=== PATIENT | female | born 1955 | race Caucasian/White ===

== ENCOUNTER 2018-11-22 15:17 | Observation (INO) | payer OTHER ==
[2018-11-22 16:04] LABS: ALT 15 U/L (9-52); AST 16 U/L (14-36); African American GFR (CKD) >90 (>60 ml/min/1.73 sqM); Alkaline Phosphatase 105 U/L (38-126); Anion Gap 11 mmol/L; Blood Urea Nitrogen 14 mg/dL (7-17); Calcium 9.3 mg/dL (8.4-10.2); Carbon Dioxide 19 mmol/L (22-30); Chloride 107 mmol/L (98-107); Glucose 218 mg/dL (74-99); INR 0.9 (<1.2); Potassium 3.8 mmol/L (3.5-5.1); Prothrombin Time 9.9 sec (9.0-12.0); Sodium 137 mmol/L (137-145); Total Bilirubin 0.3 mg/dL (0.2-1.3); Total Protein 7.3 g/dL (6.3-8.2)
--- NOTE | 2018-11-22 16:04 | ED ---
General Adult HPI - General Chief complaint: Recheck/Abnormal Lab/Rx Stated complaint: Sent for a blood transfusion Time Seen by Provider: 11/22/18 15:24 Source: patient, RN notes reviewed Mode of arrival: ambulatory Limitations: no limitations - History of Present Illness Initial comments: This a 63-year-old female presents emergency Department with chief complaint of abnormal labs. Patient states that she has not been feeling well for a while states that she recently moved back to [facility] and states that she reestablish with her PCP Dr. Chatman. Patient states that she received a phone call today and was found to have low hemoglobin. She does not know how low his hemoglobin was. She has no history of this. She does feel short of breath, intermittent abdominal discomfort and slightly dizzy at times. She does not take any blood thinners. She states that she is chronic taken metformin ibuprofen, Zoloft, Bactrim for UTI. Patient does admit that she's been having vaginal bleeding and which she states it was really severe and began year. She states that she did go for an ultrasound yesterday but does not all her results. Patient reports no fevers or chills denies any current headache. Patient denies any melena or hematochezia - Related Data Home Medications Medication Instructions Recorded Confirmed Ibuprofen [Motrin] 800 mg PO BID 11/22/18 11/22/18 Sertraline [Zoloft] 50 mg PO DAILY 11/22/18 11/22/18 Sulfamethox-Tmp 800-160Mg [Bactrim 1 tab PO BID 11/22/18 11/22/18 DS 800-160 mg] Vitamin E (Dl,Tocopheryl Acet) 400 unit PO DAILY 11/22/18 11/22/18 [Vitamin E] metFORMIN HCL [Glucophage] 500 mg PO TID 11/22/18 11/22/18 Allergies Allergy/AdvReac Type Severity Reaction Status Date / Time fluoxetine [From Prozac] Allergy Swelling Verified 11/22/18 15:45 Review of Systems ROS Statement: Those systems with pertinent positive or pertinent negative responses have been documented in the HPI. ROS Other: All systems not noted in ROS Statement are negative. Past Medical History Past Medical History: Diabetes Mellitus History of Any Multi-Drug Resistant Organisms: None Reported Additional Past Surgical History / Comment(s): skin graft Past Psychological History: Anxiety, Depression, Panic Disorder Smoking Status: Current every day smoker Past Alcohol Use History: None Reported Past Drug Use History: Marijuana General Exam Limitations: no limitations General appearance: alert, in no apparent distress Head exam: Present: atraumatic, normocephalic, normal inspection Eye exam: Present: normal appearance, PERRL, EOMI. Absent: scleral icterus, conjunctival injection, periorbital swelling ENT exam: Present: normal exam, normal oropharynx, mucous membranes moist Neck exam: Present: normal inspection, full ROM. Absent: tenderness, meningismus, lymphadenopathy Respiratory exam: Present: normal lung sounds bilaterally. Absent: respiratory distress, wheezes, rales, rhonchi, stridor Cardiovascular Exam: Present: normal rhythm, tachycardia, normal heart sounds. Absent: systolic murmur, diastolic murmur, rubs, gallop, clicks GI/Abdominal exam: Present: soft, normal bowel sounds. Absent: distended, tenderness, guarding, rebound, rigid Neurological exam: Present: alert Skin exam: Present: warm, dry, intact, normal color. Absent: rash Course Vital Signs 11/22/18 11/22/18 15:19 15:58 Temperature 99.0 F Pulse Rate 105 H Respiratory 22 16 Rate Blood Pressure 165/90 O2 Sat by Pulse 99 Oximetry EKG Findings - EKG Comments: EKG Findings:: EKG performed at 15:40 junctional Rhythm with PVC Rate of 107 NJ 122 QRS 66 QT/QTC 366/488 Medical Decision Making - Medical Decision Making 63-year-old female presented from for abnormal labs. Patient found to have anemia hemoglobin 7.1. Patient has had some intermittent vaginal bleeding and she did have an ultrasound yesterday which showed endometrial thickening concerning for carcinoma. Dr. Vegas discussed the case with Dr. trung ashraf who recommends patient be admitted will be transfused for symptomatic anemia with consult the [facility]. - Lab Data Result diagrams: 11/22/18 15:46 11/22/18 15:50 Lab Results 11/22/18 11/22/18 11/22/18 Range/Units 15:46 15:50 15:50 WBC 10.9 H (3.8-10.6) k/uL RBC 4.41 (3.80-5.40) m/uL Hgb 7.1 L (11.4-16.0) gm/dL Hct 27.2 L (34.0-46.0) % MCV 61.7 L (80.0-100.0) fL MCH 16.1 L (25.0-35.0) pg MCHC 26.0 L (31.0-37.0) g/dL RDW 19.7 H (11.5-15.5) % Hypochromasia Marked Poikilocytosis Slight Anisocytosis Slight Microcytosis Marked PT (9.0-12.0) sec INR (<1.2) APTT (22.0-30.0) sec Sodium 137 (137-145) mmol/L Potassium 3.8 (3.5-5.1) mmol/L Chloride 107 (98-107) mmol/L Carbon Dioxide 19 L (22-30) mmol/L Anion Gap 11 mmol/L BUN 14 (7-17) mg/dL Creatinine 0.66 (0.52-1.04) mg/dL Est GFR (CKD-EPI)AfAm >90 (>60 ml/min/1.73 sqM) Est GFR (CKD-EPI)NonAf >90 (>60 ml/min/1.73 sqM) Glucose 218 H (74-99) mg/dL Calcium 9.3 (8.4-10.2) mg/dL Total Bilirubin 0.3 (0.2-1.3) mg/dL AST 16 (14-36) U/L ALT 15 (9-52) U/L Alkaline Phosphatase 105 (38-126) U/L Troponin I (0.000-0.034) ng/mL Total Protein 7.3 (6.3-8.2) g/dL Albumin 4.0 (3.5-5.0) g/dL Blood Type A Negative Blood Type Recheck No Previous Record Bld Type Recheck Status CABO Indicated Antibody Screen NEGATIVE Spec Expiration Date 11/25/2018 - 234911/22/18 11/22/18 Range/Units 15:50 15:50 WBC (3.8-10.6) k/uL RBC (3.80-5.40) m/uL Hgb (11.4-16.0) gm/dL Hct (34.0-46.0) % MCV (80.0-100.0) fL MCH (25.0-35.0) pg MCHC (31.0-37.0) g/dL RDW (11.5-15.5) % Hypochromasia Poikilocytosis Anisocytosis Microcytosis PT 9.9 (9.0-12.0) sec INR 0.9 (<1.2) APTT 23.0 (22.0-30.0) sec Sodium (137-145) mmol/L Potassium (3.5-5.1) mmol/L Chloride (98-107) mmol/L Carbon Dioxide (22-30) mmol/L Anion Gap mmol/L BUN (7-17) mg/dL Creatinine (0.52-1.04) mg/dL Est GFR (CKD-EPI)AfAm (>60 ml/min/1.73 sqM) Est GFR (CKD-EPI)NonAf (>60 ml/min/1.73 sqM) Glucose (74-99) mg/dL Calcium (8.4-10.2) mg/dL Total Bilirubin (0.2-1.3) mg/dL AST (14-36) U/L ALT (9-52) U/L Alkaline Phosphatase (38-126) U/L Troponin I <0.012 (0.000-0.034) ng/mL Total Protein (6.3-8.2) g/dL Albumin (3.5-5.0) g/dL Blood Type Blood Type Recheck Bld Type Recheck Status Antibody Screen Spec Expiration Date Disposition Clinical Impression: Anemia, Endometrial thickening on ultrasound Disposition: ADMITTED IP TO THIS [facility] Condition: Fair Referrals: Selena Escobedo MD [Primary Care Provider] - 1-2 days
[2018-11-22 16:10] LABS: Anisocytosis Slight; HCT 27.2 % (34.0-46.0); HGB 7.1 gm/dL (11.4-16.0); Hypochromasia Marked; MCH 16.1 pg (25.0-35.0); MCV 61.7 fL (80.0-100.0); Mean Platelet Volume 6.6; Microcytosis Marked; Platelet Count 499 k/uL (150-450); Poikilocytosis Slight; RBC 4.41 m/uL (3.80-5.40); RDW 19.7 % (11.5-15.5); WBC 10.9 k/uL (3.8-10.6)
--- NOTE | 2018-11-22 16:21 | XR ---
EXAMINATION TYPE: XR chest 2V DATE OF EXAM: 11/22/2018 COMPARISON: NONE HISTORY: Shortness of breath and weakness. TECHNIQUE: Frontal and lateral views of the chest are obtained. FINDINGS: Somewhat low lung volumes. Overlying EKG leads. There is no focal air space opacity, pleura l effusion, or pneumothorax seen. The cardiac silhouette size is enlarged with slightly ectatic thor acic aorta. The osseous structures are intact. IMPRESSION: Cardiomegaly without acute pulmonary process.
[2018-11-22] MEDS ORDERED: NALOXONE 0.4 MG/ML 1 ML VIAL IV PRN (16:46)
[2018-11-22] MEDS ORDERED: ACETAMINOPHEN TAB 325 MG TAB PO PRN (16:46)
[2018-11-22] MEDS ORDERED: ONDANSETRON 4 MG/2 ML VIAL IVP PRN (16:46)
[2018-11-22] MEDS ORDERED: HYDROcodone/APAP 5-325MG 1 EACH TAB PO PRN (16:46)
[2018-11-22] MEDS ORDERED: FERROUS SULFATE 325 MG TAB PO STA (16:48)
[2018-11-22 16:53] LABS: Anisocytosis (M) Present; Basophils # (M) 0.11 k/uL (0-0.2); Eosinophils # (M) 0.22 k/uL (0-0.7); Hypochromasia (M) Present; Lymphocytes # (M) 2.51 k/uL (1.0-4.8); Monocytes # (M) 0.33 k/uL (0-1.0); Neutrophils % (M) 71 %; Nucleated Red Blood Cells 0 /100 WBC (0-0); Polychromasia Present; Total Cells Counted 100
[2018-11-22 17:33] LABS: Appearance,Urine Clear (Clear); Bilirubin,Urine Negative (Negative); Blood,Urine Small (Negative); Color,Urine Yellow; Glucose,Urine (UA) 1+ (Negative); Ketones,Urine Negative (Negative); Leukocyte Esterase,Urine Moderate (Negative); Mucus,Urine Few /hpf; Nitrite,Urine Negative (Negative); Protein,Urine 1+ (Negative); RBC,Urine 2 /hpf (0-5); Specific Gravity,Urine 1.026 (1.001-1.035); Squamous Epithelial Cell,Urine 4 /hpf (0-4); WBC,Urine 4 /hpf (0-5)
[2018-11-22 17:53] LABS: Glucose,Whole Blood 228 mg/dL (75-99)
[2018-11-22 20:57] LABS: Glucose,Whole Blood 223 mg/dL (75-99)
[2018-11-22 21:22] VITALS: RESP 16
[2018-11-22] MEDS: metFORMIN 500 MG TAB PO SCH (21:54)
[2018-11-22] MEDS: NICOTINE 21MG/24HR PATCH TRANSDERM SCH (21:54)
[2018-11-23 05:55] VITALS: BP 134/68; PULSE 86; TEMP 98.3
[2018-11-23 07:31] LABS: Glucose,Whole Blood 168 mg/dL (75-99)
[2018-11-23 08:03] LABS: Anisocytosis Moderate; HGB 7.6 gm/dL (11.4-16.0); Hypochromasia Marked; MCH 17.7 pg (25.0-35.0); MCHC 28.3 g/dL (31.0-37.0); MCV 62.4 fL (80.0-100.0); Mean Platelet Volume 7.1; Microcytosis Marked; Platelet Count 485 k/uL (150-450); Poikilocytosis Moderate; RBC 4.32 m/uL (3.80-5.40); RDW 21.5 % (11.5-15.5); WBC 11.4 k/uL (3.8-10.6)
[2018-11-23] MEDS: metFORMIN 500 MG TAB PO SCH ×2 (08:13→12:37)
[2018-11-23] MEDS: INSULIN ASPART (NovoLOG) 100 UNIT/ML VIAL SQ SCH ×2 (08:13→12:31)
[2018-11-23] MEDS: NICOTINE 21MG/24HR PATCH TRANSDERM SCH (08:13)
[2018-11-23] MEDS ORDERED: SERTRALINE 50 MG TAB PO SCH (09:00)
[2018-11-23 10:40] VITALS: BMI 36.6
[2018-11-23] MEDS ORDERED: SODIUM FERRIC GLUCONAT-SUCROSE 125 MG in SODIUM CHLORIDE 0.9% 100 ML IVPB ONE (12:00)
[2018-11-23 12:10] LABS: Glucose,Whole Blood 242 mg/dL (75-99)
[2018-11-23 12:21] LABS: Anisocytosis Moderate; HCT 28.8 % (34.0-46.0); HGB 7.9 gm/dL (11.4-16.0); Hypochromasia Marked; MCH 17.9 pg (25.0-35.0); MCHC 27.5 g/dL (31.0-37.0); MCV 65.1 fL (80.0-100.0); Microcytosis Marked; Platelet Count 525 k/uL (150-450); Poikilocytosis Marked; RBC 4.43 m/uL (3.80-5.40)
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
--- NOTE | 2018-11-23 12:25 | P.DS ---
Providers Date of admission: 11/22/18 17:03 Attending physician: Barbra Castillo Consults: 11/22/18 16:47 Consult Physician Routine Consulting Provider: Jairo Arias Consult Reason/Comments: Abnormal vaginal bleeding, thickened endometrial lining, anemia Do you want consulting provider notified?: Yes Primary care physician: Fanny Walters [facility] Course: Please refer to my HPI Patient Condition at Discharge: Fair Plan - Discharge Summary Discharge Rx Participant: Yes New Discharge Prescriptions: New Ferrous Sulfate [Iron (65 MG Elemental)] 325 mg PO BID #60 tab Polyethylene Glycol 3350 [Miralax] 17 gm PO DAILY PRN #15 packet PRN Reason: Constipation metFORMIN HCL [Glucophage] 1,000 mg PO BID #60 tab Discontinued metFORMIN HCL [Glucophage] 500 mg PO TID Sulfamethox-Tmp 800-160Mg [Bactrim DS 800-160 mg] 1 tab PO BID Ibuprofen [Motrin] 800 mg PO BID No Action Vitamin E (Dl,Tocopheryl Acet) [Vitamin E] 400 unit PO DAILY Sertraline [Zoloft] 50 mg PO DAILY Discharge Medication List Sertraline [Zoloft] 50 mg PO DAILY 11/22/18 [History] Vitamin E (Dl,Tocopheryl Acet) [Vitamin E] 400 unit PO DAILY 11/22/18 [History] Ferrous Sulfate [Iron (65 MG Elemental)] 325 mg PO BID #60 tab 11/23/18 [Rx] Polyethylene Glycol 3350 [Miralax] 17 gm PO DAILY PRN #15 packet 11/23/18 [Rx] metFORMIN HCL [Glucophage] 1,000 mg PO BID #60 tab 11/23/18 [Rx] Follow up Appointment(s)/Referral(s): Mayco Miller MD [STAFF PHYSICIAN] - 1 Week Selena Escobedo MD [Primary Care Provider] - 3 Days
== END 2018-11-23 15:41 | disposition home or self-care (01) ==
LOC: EC 15:17 → 4MS4W 17:03
PROVIDERS: ADMIT Internal Medicine; ATTEND Internal Medicine
DX: D50.0 Iron deficiency anemia secondary to blood loss (chronic) (principal); R93.89 Abnormal findings on diagnostic imaging of other specified body structures; N95.0 Postmenopausal bleeding; N93.9 Abnormal uterine and vaginal bleeding, unspecified; R10.9 Unspecified abdominal pain; E11.9 Type 2 diabetes mellitus without complications; F41.0 Panic disorder [episodic paroxysmal anxiety]; F32.9 Major depressive disorder, single episode, unspecified; F17.200 Nicotine dependence, unspecified, uncomplicated; K92.2 Gastrointestinal hemorrhage, unspecified; D47.3 Essential (hemorrhagic) thrombocythemia; E66.9 Obesity, unspecified; Z68.36 Body mass index [BMI] 36.0-36.9, adult; Z79.84 Long term (current) use of oral hypoglycemic drugs; Z79.1 Long term (current) use of non-steroidal anti-inflammatories (NSAID); Z79.899 Other long term (current) drug therapy; Z88.8 Allergy status to other drugs, medicaments and biological substances; Z87.01 Personal history of pneumonia (recurrent); Z83.3 Family history of diabetes mellitus; Z82.49 Family history of ischemic heart disease and other diseases of the circulatory system; Z83.6 Family history of other diseases of the respiratory system; Z83.2 Family history of diseases of the blood and blood-forming organs and certain disorders involving the immune mechanism; Z80.3 Family history of malignant neoplasm of breast; Z80.0 Family history of malignant neoplasm of digestive organs
CPT/HCPCS: 36430; 96365; 99284; 36415; 93005; 86900; 86901; 80053; 82728; 84484; 85025; 85027; 85610; 85730; 86850; 86920; 81001; 71046; G0378 ×2; P9016; S4990 ×2; J2916

== ENCOUNTER → 2018-11-22 | Outpatient (CLI) | payer OTHER ==
--- NOTE | 2018-11-22 08:48 | US ---
"EXAMINATION TYPE: US pelvis complete transvag DATE OF EXAM: 11/22/2018 COMPARISON: NONE CLINICAL HISTORY: N95.0 post-menopausal bleeding, R10.2 pelvic pain. spotting started June 2017, and has increased to clots currently TECHNIQUE: TA/TV. Transabdominal sonographic images of the pelvis were acquired. Transvaginal sono graphic images were medically necessary to better assess the following anatomy: endometrium Date of LMP: 10years EXAM MEASUREMENTS: Uterus: 8.6 x 6.5 x 5.2cm Endometrial Stripe: 4.1 cm Right Ovary: N/A Left Ovary: N/A 1. Uterus: Anteverted heterogeneous 2. Endometrium: grossly thickened with vascularity 3. Right Ovary: not seen due to atrophy and bowel gas 4. Left Ovary: not seen due to atrophy and bowel gas 5. Bilateral Adnexa: wnl 6. Posterior cul-de-sac: wnl IMPRESSION: Grossly thickened endometrium measuring 4.1 cm with internal vascularity either represent ing endometrial carcinoma, a large endometrial polyp, or less likely endometrial hyperplasia or leiom yoma. Direct visualization and sampling are recommended. Ovaries are not seen due to overlying bowel gas and presumed atrophy. A Yellow level critical message alert has been initiated for Selena Escobedo MD via the [employer] | Critical Results System on 11/22/2018 8:45 AM. This message alert has been sent to Selena greco MD via the preferences provided by the clinician for the receipt of Radiology Critical Findings. Fidel essage ID [id number]."
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
== END | disposition home or self-care (01) ==
LOC: RADUSWWP 06:46
PROVIDERS: ATTEND Internal Medicine
DX: R93.89 Abnormal findings on diagnostic imaging of other specified body structures (principal); N95.0 Postmenopausal bleeding; R10.2 Pelvic and perineal pain; Z88.8 Allergy status to other drugs, medicaments and biological substances
CPT/HCPCS: 76830; 76856

== ENCOUNTER → 2019-03-29 | Outpatient (CLI) | payer OTHER ==
[2019-03-29 09:51] LABS: ALT 12 U/L (4-34); AST 18 U/L (14-36); African American GFR (CKD) >90 (>60 ml/min/1.73 sqM); Albumin 4.3 g/dL (3.5-5.0); Alkaline Phosphatase 83 U/L (38-126); Anion Gap 10 mmol/L; Blood Urea Nitrogen 13 mg/dL (7-17); Calcium 9.8 mg/dL (8.4-10.2); Carbon Dioxide 21 mmol/L (22-30); Chloride 109 mmol/L (98-107); Glucose 168 mg/dL (74-99); Non-African American GFR(CKD) >90 (>60 ml/min/1.73 sqM); Sodium 140 mmol/L (137-145); Total Bilirubin 0.7 mg/dL (0.2-1.3); Total Protein 7.7 g/dL (6.3-8.2)
[2019-03-29 10:06] LABS: Potassium 4.3 mmol/L (3.5-5.1)
--- NOTE | 2019-03-29 11:29 | CT ---
EXAMINATION TYPE: CT abdomen pelvis wo/w con DATE OF EXAM: 03/29/2019 HISTORY: Malignant neoplasm of Endometrium CT DLP: 2358.1mGycm Automated Exposure Control for Dose Reduction was Utilized. CONTRAST: CT scan of the abdomen and pelvis is performed with oral and without and with IV Contrast, patient in jected with 100 mL of Isovue 300. COMPARISON: Pelvic ultrasound November 22, 2018. FINDINGS: LUNG BASES: No significant abnormality is appreciated. LIVER/GB: No significant abnormality is appreciated. PANCREAS: No significant abnormality is seen. SPLEEN: No significant abnormality is seen. ADRENALS: No significant abnormality is seen. KIDNEYS: No significant abnormality is seen. BOWEL: No oral contrast only reaches level of the terminal ileum making evaluation distal bowel subop timal. There is moderate wall thickening throughout majority of the the entire colon from cecum to pr oximal sigmoid colon level. [id number] wall thickening throughout the sigmoid colon is present. Rectum shows no suspicious wall thickening. There are diverticula throughout the sigmoid colon. Ther e is no significant surrounding fat stranding. Incidental normal-appearing appendix inferiorly from c ecum in the right upper pelvis. UTERUS/ADNEXA: Heterogeneous anteverted enlarged uterus is redemonstrated. There are some pelvic blee d was bilaterally greater on the right side. No suspicious adnexal masses are seen. LYMPH NODES: No greater than 1cm abdominal or pelvic lymph nodes are appreciated. OSSEOUS STRUCTURES: Slight grade 1 anterolisthesis L4 on L5 moderate to advanced disc space narrowing with vacuum disc phenomenon L4-L5 level mild to moderate disc space narrowing L3-L4 level. Mild to m oderate multilevel inferior and lateral spurring in the thoracic spine. Facet arthropathy lower lumba r levels. OTHER: Small fat-containing bilateral inguinal hernias. Mild calcified plaque distal abdominal aorta extending to iliac branch vessels. IMPRESSION: 1. No suspicious mass or adenopathy to suggest metastatic malignancy. 2. Probable long segment colitis, differential includes infectious and inflammatory etiologies. Sigmo id colonic diverticulosis without convincing CT evidence for acute diverticulitis.
--- NOTE | 2019-03-29 13:32 | XR ---
EXAMINATION TYPE: XR chest 2V DATE OF EXAM: 03/29/2019 COMPARISON: Prior chest 11/22/2018 HISTORY: Malignant neoplasm of endometrium, endometrial carcinoma TECHNIQUE: Frontal and lateral views of the chest are obtained. FINDINGS: There is no focal air space opacity, pleural effusion, or pneumothorax seen. The cardiac silhouette size is within normal limits. The osseous structures are intact. There is eventration of the right hemidiaphragm. IMPRESSION: No acute cardiopulmonary process.
== END | disposition home or self-care (01) ==
LOC: RADCTMAIN 08:52
PROVIDERS: ATTEND Obstetrics & Gynecology Gynecology
DX: K57.30 Diverticulosis of large intestine without perforation or abscess without bleeding (principal); C54.1 Malignant neoplasm of endometrium
CPT/HCPCS: 80053; 71046; 74178; 36415; Q9967 ×2

== ENCOUNTER → 2021-08-22 | Outpatient (CLI) | payer OTHER ==
[2021-08-22 18:43] LABS: ALT 15 U/L (8-44); AST 10 U/L (13-35); African American GFR (CKD) 107.3 (60.0-200.0); Albumin 4.5 g/dL (3.8-4.9); Albumin/Globulin Ratio 1.77 (1.60-3.17); Alkaline Phosphatase 100 U/L (41-126); BUN/Creat Ratio 19.79 Ratio (12.00-20.00); Blood Urea Nitrogen 13.4 mg/dL (9.0-27.0); Calcium 9.2 mg/dL (8.7-10.3); Carbon Dioxide 20.3 mmol/L (20.0-27.5); Chloride 109 mmol/L (96-109); Globulin 2.5 g/dL (1.6-3.3); Glucose 117 mg/dL (70-110); Iron 12 ug/dL (50-170); Non-African American GFR(CKD) 92.6 (60.0-200.0); Potassium 5.1 mmol/L (3.5-5.5); Sodium 141 mmol/L (135-145); Total Bilirubin <0.15 mg/dL (0.30-1.20)
[2021-08-22 18:51] LABS: HCT 24.6 % (37.2-46.3); HGB 6.2 g/dL (12.0-15.0); MCH 18.6 pg (27.0-32.0); MCHC 25.2 g/dL (32.0-37.0); MCV 73.9 fL (80.0-97.0); Mean Platelet Volume 10.1 fL (9.5-12.2); NRBC Per 100 WBC 0 /100 WBCS (0.0-0.0); Platelet Count 459 X 10*3/uL (140-440); RBC 3.33 X 10*6/uL (4.10-5.20); RDW 20.3 % (11.5-14.5); WBC 12.12 X 10*3/uL (4.50-10.00)
[2021-08-22 20:28] LABS: Appearance,Urine Cloudy (Clear); Bacteria,Urine 4+ /HPF (None Seen); Bilirubin,Urine Negative (Negative); Blood,Urine Negative (Negative); Color,Urine Yellow (Yellow); Ketones,Urine Trace mg/dL (Negative); Nitrite,Urine Negative (Negative); PH, Urine 5.5 (5.0-8.0); Specific Gravity,Urine >1.035 (1.001-1.030)
== END | disposition home or self-care (01) ==
LOC: LABWHC1 11:49
PROVIDERS: ATTEND Physician Assistant
DX: E11.9 Type 2 diabetes mellitus without complications (principal); D64.9 Anemia, unspecified
CPT/HCPCS: 36415; 80053; 81001; 83036; 83540; 85027

== ENCOUNTER → 2021-08-28 | Outpatient (CLI) | payer OTHER ==
--- NOTE | 2021-08-29 22:12 | CT ---
EXAMINATION TYPE: CT abdomen pelvis w con CT DLP: 1562.0 mGycm, Automated exposure control for dose reduction was used. DATE OF EXAM: 08/28/2021 8:18 PM COMPARISON: CT abdomen pelvis most recent from 03/29/2019. CLINICAL INDICATION:Female, 66 years old with history of C54.2 mal neoplasm endometrium, Z08 follow u p aftr; mal neoplasm endometrium TECHNIQUE: Standard CT of the abdomen and pelvis following the administration of 100 cc of Isovue 3 00 IV contrast material and oral contrast. Coronal and sagittal reformats were performed. FINDINGS: LOWER CHEST: Unremarkable ABDOMEN LIVER: Diffusely hypoattenuating parenchyma. GALLBLADDER AND BILE DUCTS: Unremarkable. PANCREAS: Unremarkable. SPLEEN: Unremarkable. ADRENAL GLANDS: Unremarkable. KIDNEYS AND URETERS: No evidence of hydronephrosis or renal calculus. The ureters are unremarkable. PELVIS BLADDER: There is circumferential thickening of the bladder reed measuring up to 10 mm. REPRODUCTIVE: The uterus is surgically absent. ABDOMEN & PELVIS STOMACH AND BOWEL: Scattered diverticula are noted throughout the colon. No evidence of bowel obstr uction. No change in appearance of the nondistention of the distal transverse colon extending into th e descending colon. PERITONEUM: No evidence of pneumoperitoneum or free fluid. VASCULATURE: No evidence of aortic aneurysm. MUSCULOSKELETAL: No acute osseous abnormalities. Grade 1 anterolisthesis of L4 and L5 without spondyl olysis. LYMPH NODES: No gross evidence for lymphadenopathy. Portacaval lymph node measuring 8 mm in short axi s, not significantly changed from 2020. SOFT TISSUE/ABDOMINAL WALL: Fat filled umbilical hernia measuring 0.6 cm at the neck. Small fat-conta ining bilateral inguinal hernias. IMPRESSION: 1. Surgically absent uterus without evidence for recurrent or metastatic disease. 2. Hepatic steatosis 3. Similar appearance of the nondistended distal transverse colon extending into the descending colon when comparing to 2019. 4. Colonic diverticulosis.
== END | disposition home or self-care (01) ==
LOC: RADCTMAIN 15:33
PROVIDERS: ATTEND Radiology Radiation Oncology
DX: Z08 Encounter for follow-up examination after completed treatment for malignant neoplasm (principal); C54.2 Malignant neoplasm of myometrium; F17.210 Nicotine dependence, cigarettes, uncomplicated; Z85.42 Personal history of malignant neoplasm of other parts of uterus; Z92.3 Personal history of irradiation
CPT/HCPCS: 74177; Q9967 ×2

== ENCOUNTER 2021-10-07 07:26 | Day surgery (SDC) | payer OTHER ==
[2021-10-06 08:17] VITALS: BMI 36.8
[~2021-10-07 07:26] MED LIST: LACTATED RINGERS 1,000 ML IV SCH; LIDOCAINE 1% (10MG/ML) FOR IV START INTRADERMA PRN; ONDANSETRON 4 MG/2 ML VIAL IVP PRN
[2021-10-07 07:54] VITALS: RESP 16; TEMP 97.1
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
[2021-10-07] MEDS ORDERED: LACTATED RINGERS 1,000 ML IV ONE (08:11)
[2021-10-07] MEDS ORDERED: LIDOCAINE 2% INJ 20 MG/ML (2 ML VIAL) ONE (08:12)
[2021-10-07] MEDS ORDERED: PROPOFOL 10 MG/ML 20 ML VIAL IV ONE (08:12)
[2021-10-07 08:13] LABS: Glucose,Whole Blood 202 mg/dL (70-110)
--- NOTE | 2021-10-07 08:52 | P.PCN ---
Date of Procedure: 10/07/21 Procedure(s) Performed: PREOPERATIVE DIAGNOSIS: Anemia, screening POSTOPERATIVE DIAGNOSIS: Gastritis, hiatal hernia, multiple colon polyps, diverticulosis PROCEDURE: 1. EGD with biopsy 2. Colonoscopy with snare polypectomy ANESTHESIA: MAC SURGEON: Nelson Rosales M.D. SPECIMENS: Antrum, polyps ENDOSCOPIC PROCEDURE: The patient was on the endoscopy table in the left decubitus position. The Olympus gastroscope was inserted into the oropharynx and passed under direct visualization to the region of the third portion of the duodenum. From that point the scope was slowly withdrawn inspecting all surfaces carefully. There were no neoplastic inflammatory or polypoid lesions throughout the duodenum. The pylorus was widely patent. The stomach was carefully inspected. There was gastritis present without ulcerations. A biopsy of the antrum took place to rule out H. pylori. Retroflexion revealed a small sliding hiatal hernia. GE junction was present 2 cm above the diaphragmatic hiatus. The esophagus was then carefully examined. There were no neoplastic inflammatory or polypoid lesions throughout the visualized esophagus. The patient was kept on the endoscopy table in the left decubitus position. The Olympus colonoscope was inserted into the anus and passed under direct visualization to the base of the cecum. The appendiceal orifice was visualized. From that point the scope was slowly withdrawn inspecting all surfaces carefully. There were no neoplastic inflammatory or polypoid lesions throughout the cecum. In the ascending colon 2 polyps were seen and removed using the snare with cautery technique. At the hepatic flexure an additional polyp seen and removed in a similar fashion. The remainder of the transverse colon was normal. In the descending colon there were 2 polyps removed using the snare with cautery technique. The sigmoid and rectum appeared normal. There was mild left-sided diverticulosis. Digital rectal examination was normal. The patient was taken to the recovery room in stable condition per anesthesia guidelines. RECOMMENDATIONS: Await biopsy results. No findings to explain the patient's anemia.
[2021-10-07 09:28] VITALS: BP 165/86; PULSE 82
== END 2021-10-07 10:01 | disposition home or self-care (01) ==
LOC: ORWHC2ENDO 07:26
PROVIDERS: ATTEND Surgery
DX: Z12.11 Encounter for screening for malignant neoplasm of colon (principal); D12.2 Benign neoplasm of ascending colon; D12.4 Benign neoplasm of descending colon; D12.3 Benign neoplasm of transverse colon; K29.50 Unspecified chronic gastritis without bleeding; K44.9 Diaphragmatic hernia without obstruction or gangrene; K57.30 Diverticulosis of large intestine without perforation or abscess without bleeding; D50.9 Iron deficiency anemia, unspecified; E11.9 Type 2 diabetes mellitus without complications; I10 Essential (primary) hypertension; Z85.42 Personal history of malignant neoplasm of other parts of uterus; Z90.710 Acquired absence of both cervix and uterus; F17.200 Nicotine dependence, unspecified, uncomplicated; Z79.84 Long term (current) use of oral hypoglycemic drugs; Z79.899 Other long term (current) drug therapy; Z88.8 Allergy status to other drugs, medicaments and biological substances; J44.9 Chronic obstructive pulmonary disease, unspecified; Z80.9 Family history of malignant neoplasm, unspecified; Z82.49 Family history of ischemic heart disease and other diseases of the circulatory system; Z83.3 Family history of diabetes mellitus; Z83.6 Family history of other diseases of the respiratory system
CPT/HCPCS: 88305; 45385; 43239; J2704; J2001

== ENCOUNTER → 2022-08-13 | Outpatient (CLI) | payer MEDICARE, OTHER ==
--- NOTE | 2022-08-14 08:39 | MM ---
Reason for Exam: Screening (asymptomatic). Last mammogram was performed 11 year(s) and 10 month(s) ago. Patient History: Menarche at age 14. Patient has no children. Hysterectomy at age 64. Postmenopausal. 1991, Cyst Aspiration on the Left side. Risk Values: 5 year model risk: 1.8%. NCI Lifetime model risk: 6.9%. Prior Study Comparison: 08/29/2008 Bilateral Screening Mammogram, [facility]. 09/02/2009 Bilateral Screening Mammogram, [facility]. 10/30/2010 Bilateral Screening Mammogram, [facility]. Tissue Density: There are scattered fibroglandular densities. Findings: Analyzed By CAD. There is no suspicious group of microcalcifications or new suspicious mass in either breast. Overall Assessment: Negative, BI-RAD 1 Management: Screening Mammogram of both breasts in 1 year. . Patient should continue monthly self-breast exams. A clinical breast exam by your physician is recommended on an annual basis. This exam should not preclude additional follow-up of suspicious palpable abnormalities. Note on scores and lifetime risk: 1. A score greater than 3% is considered moderate risk. If this is the case, consider specialist referral to assess eligibility for a risk reducing agent. 2. If overall lifetime risk for the development of breast cancer is 20% or higher, the patient may qualify for future screening with alternating mammogram and breast MRI. Electronically signed and approved by: Grady Linares M.D. Radiologis
== END | disposition home or self-care (01) ==
LOC: RADMAMWWP 14:10
PROVIDERS: ATTEND Internal Medicine Hematology & Oncology
DX: Z12.31 Encounter for screening mammogram for malignant neoplasm of breast (principal); Z78.0 Asymptomatic menopausal state
CPT/HCPCS: 77063; 77067

== ENCOUNTER → 2022-08-18 | Outpatient (CLI) | payer MEDICARE ==
--- NOTE | 2022-08-19 21:07 | CTL ---
EXAMINATION TYPE: CT Low Dose Lung DATE OF EXAM ORDERED: 08/18/2022 HISTORY: 67-year-old female Z87.891, 53 pack-year history. Lung cancer screening CT DLP: 88.[address] CTDI: 2.6 mGy Automated exposure control for dose reduction was used. SCREENING VISIT: Baseline COMPARISON: Radiograph 03/29/2019 TECHNIQUE: Low dose computed tomography scan was performed through the chest with coronal and sagitta l reconstructions. CT DIAGNOSTIC QUALITY: Satisfactory FINDINGS: Heart upper limits of normal in size without pericardial effusion. Scattered three-vessel coronary ar dheeraj calcifications are present. Mild aortic valvular calcifications. Mild aneurysm ascending aorta 4.1 cm. Ectasia upper descending thoracic aorta at 3.4 cm. Ectasia lowe r descending thoracic aorta at 2.8 cm. Enlarged caliber to the main right and left pulmonary arteries measuring up to 3.0 cm suggesting unde rlying pulmonary arterial hypertension. No thoracic lymphadenopathy by CT size criteria. Mild diffuse bronchial wall thickening. Minimal emphysematous change. Some strandy lingular atelectas is. No consolidation or pleural effusion. There is an irregular opacity at the anterior right midlung, axial image 98 measuring 1.5 cm. Possibl e prominent vascular confluence versus underlying suspicious pulmonary nodule. Otherwise, no suspicio us pulmonary nodule is seen. Visualized upper abdomen is limited due to low-dose, noncontrast technique. Bones: Accentuated midthoracic kyphosis with moderate degenerative disc disease. IMPRESSION: 1. LungRADS Category 4B (very suspicious, >15% chance of malignancy). Possible underlying 1.5 cm righ t hilar, midlung nodule versus prominent vascular confluence. Recommend initial further assessment wi th contrast-enhanced CT of the chest. Subsequent pulmonary medicine referral may be indicated to atte mpt endobronchial sampling if a true lesion is confirmed. 2. COPD with minimal emphysema. Recommend smoking cessation. CT LUNG RAD AND CT CHEST RECOMMENDATION: Lung-Rad 4B or 4X Very Suspicious: Follow-up Chest CT with o r without contrast or PET/CT and/or tissue sampling. PET/CT may be used when there is a > 8 mm solid component. S Modifier (other clinically significant findings): None
== END | disposition home or self-care (01) ==
LOC: RADCTMAIN 15:43
PROVIDERS: ATTEND Internal Medicine Hematology & Oncology
DX: Z12.2 Encounter for screening for malignant neoplasm of respiratory organs (principal); J43.9 Emphysema, unspecified; C54.9 Malignant neoplasm of corpus uteri, unspecified; D50.9 Iron deficiency anemia, unspecified; D72.829 Elevated white blood cell count, unspecified; Z71.3 Dietary counseling and surveillance; F17.200 Nicotine dependence, unspecified, uncomplicated
CPT/HCPCS: 71271

== ENCOUNTER → 2022-08-31 | Outpatient (CLI) | payer MEDICARE ==
[2022-08-31 16:42] LABS: African American GFR (CKD) >90 (>60 ml/min/1.73 sqM); Blood Urea Nitrogen 20 mg/dL (7-17); Non-African American GFR(CKD) 81 (>60 ml/min/1.73 sqM)
--- NOTE | 2022-09-01 08:21 | CT ---
EXAMINATION TYPE: CT chest w con DATE OF EXAM: 08/31/2022 COMPARISON: 08/18/2022 HISTORY: lung nodule, hx of ovarian ca CT DLP: 554.90 mGycm Automated exposure control for dose reduction was used. CONTRAST: CT scan of the chest is performed with IV Contrast, patient injected with 100 mL of Isovue 300. FINDINGS: LUNGS: 1.9 x 1.3 cm right perihilar nodule right upper lobe is demonstrated. PET/CT is recommended fu rther evaluation. Groundglass density left upper lobe near the fissure does not have masslike charact eristics and may be postinflammatory in nature. No additional nodules seen. No evidence for infiltrat e or pleural effusion. No volume loss. MEDIASTINUM: There are no greater than 1 cm hilar or mediastinal lymph nodes. No pericardial effusi on is seen. Thoracic aorta is of normal caliber. The heart is not enlarged. 1 cm lymph node right hi lum. UPPER ABDOMEN: No significant abnormality appreciated. OTHER: No additional significant abnormality is seen. IMPRESSION: 1. Right perihilar right upper lobe nodule is demonstrated and PET/CT is recommended for further eval uation. 2. 1 cm right hilar lymph node.
== END | disposition home or self-care (01) ==
LOC: RADCTMAIN 15:52
PROVIDERS: ATTEND Internal Medicine Hematology & Oncology
DX: C54.9 Malignant neoplasm of corpus uteri, unspecified (principal); R91.1 Solitary pulmonary nodule; Z85.43 Personal history of malignant neoplasm of ovary
CPT/HCPCS: 82565; 84520; 71260; 36415; Q9967

== ENCOUNTER → 2023-01-26 | Outpatient (CLI) | payer MEDICARE, OTHER ==
--- NOTE | 2023-01-26 14:04 | US ---
EXAMINATION TYPE: US thyroid st tissue head/neck DATE OF EXAM: 01/26/2023 COMPARISON: CT chest 12/09/2022 CLINICAL INDICATION: Female, 67 years old with history of R22.0 RIGHT THYROID MASS; rt nodule seen on PET CT GLAND SIZE: Right Lobe: 5.7 x 1.8 x 1.9 cm Overall Parenchyma: homogeneous Left Lobe: 3.9 x 1.5 x 1.7 cm Overall Parenchyma: homogeneous Isthmus Thickness: 0.4 cm NODULES RIGHT: # of nodules measured on right: 1 1. 1.6 X 1.1 x 1.3 cm, lower solid or almost completely solid, hyperechoic nodule, which is taller than wide, with smooth margins, without echogenic foci. TR 4 Prior size: 1.2cm LEFT: # of nodules measured on left: 0 ISTHMUS: # of nodules measured in the isthmus: 0 Bilateral neck scanned, no evidence of lymphadenopathy. IMPRESSION: Right thyroid lobe TR 4 nodule measuring 1.6 cm. ACR TI-RADS LEVEL: TR-RADS 4 - Moderately Suspicious: Follow if > 1 cm, FNA if > 1.5 cm *Highest TI-RADS level nodule reported
== END | disposition home or self-care (01) ==
LOC: RADUSWWP 13:19
PROVIDERS: ATTEND Internal Medicine Hematology & Oncology
DX: Z03.89 Encounter for observation for other suspected diseases and conditions ruled out (principal); E04.1 Nontoxic single thyroid nodule; R22.0 Localized swelling, mass and lump, head
CPT/HCPCS: 76536

== ENCOUNTER 2023-02-25 12:54 | Day surgery (SDC) | payer MEDICARE, OTHER ==
[2023-02-25] MEDS ORDERED: ALPRAZolam 0.5 MG TAB PO STA (13:20)
[2023-02-25 13:27] VITALS: RESP 18; TEMP 98.4
--- NOTE | 2023-02-25 14:44 | US ---
EXAMINATION TYPE: US FNA thyroid first lesion DATE OF EXAM: 02/25/2023 2:37 PM CLINICAL INDICATION:Female, 67 years old with history of E04.1 NONTOXIC SINGLE THYROID NODULE; , thyr oid nodule. COMPARISON: 01/26/2023 ATTENDING: Dr. Sushant Shepherd PROCEDURE: Informed consent was obtained. The risks and benefits of the procedure were discussed with the patien t. The site was marked. Timeout procedure was performed Ultrasound imaging of the thyroid demonstrates right thyroid nodule. The patient was prepped, draped in the usual sterile fashion, and locally anesthetized with 1% lidoca ine. Five fine needle aspiration were then performed with a 25 gauge needle. Samples were sent to [facility] pathology department for further analysis. Patient tolerated the procedure without incident and wa s sent home in stable condition. IMPRESSION: Successful ultrasound guided fine needle aspiration.
[2023-02-25 15:11] VITALS: BP 130/71; PULSE 103
== END 2023-02-25 14:45 | disposition home or self-care (01) ==
LOC: RADPROMAIN 12:54
PROVIDERS: ATTEND Internal Medicine Hematology & Oncology
DX: E04.1 Nontoxic single thyroid nodule (principal)
CPT/HCPCS: 10005; 88173; 88305

== ENCOUNTER 2023-04-15 10:57 | Day surgery (SDC) | payer MEDICARE ==
[2023-04-14 08:33] VITALS: BMI 39.4
[~2023-04-15 10:57] MED LIST changes: -ONDANSETRON 4 MG/2 ML VIAL IVP PRN
[2023-04-15 12:08] LABS: Glucose,Whole Blood 246 mg/dL (70-110)
[2023-04-15] MEDS ORDERED: INSULIN ASPART (NovoLOG) 100 UNIT/ML VIAL SQ ONE (12:26)
[2023-04-15] MEDS ORDERED: fentaNYL (PF) 50 MCG/ML 2 ML AMP ONE (12:30)
[2023-04-15] MEDS ORDERED: PHENYLEPHRINE 10 MG/ML VIAL ONE (12:30)
[2023-04-15] MEDS ORDERED: LIDOCAINE 1% INJ 10MG/ML (20 ML MDV) ONE (12:30)
[2023-04-15] MEDS ORDERED: PROPOFOL 10 MG/ML 20 ML VIAL IV ONE (12:30)
[2023-04-15] MEDS ORDERED: SUCCINYLCHOLINE CHLORIDE 200 MG/10 ML VIAL IV ONE (12:30)
[2023-04-15] MEDS ORDERED: ePHEDrine 50 MG/ML 1 ML VIAL ONE (12:30)
[2023-04-15] MEDS ORDERED: NEOSTIGMINE 1 MG/ML 10 ML VIAL ONE (12:30)
[2023-04-15] MEDS ORDERED: ROCURONIUM 10 MG/ML (5 ML VIAL) IV ONE (12:30)
[2023-04-15] MEDS ORDERED: GLYCOPYRROLATE 0.2 MG/ML 2 ML VIAL ONE (12:30)
[2023-04-15] MEDS ORDERED: MIDAZOLAM 2 MG/2 ML VIAL ONE (12:30)
--- NOTE | 2023-04-15 12:34 | CT ---
EXAMINATION TYPE: CT chest wo con DATE OF EXAM: 04/15/2023 COMPARISON: 12/09/2022 HISTORY: ION bronchoscopy CT DLP: 740.30 mGycm, Automated exposure control for dose reduction was used. CONTRAST: Performed injected with 0 mL of Isovue 300. TECHNIQUE: Axial images were obtained at 1 mm thick sections. Reconstructed images are reviewed on wavecatch computer in the coronal plane. FINDINGS: Portion of the thyroid visualized is normal. There is a area of increased density within the right hilar region. This appears to be a change from comparison. On mediastinal windows this measures approximately 1.1 cm, series 3 image 96. No enlarged mediastinal or hilar adenopathy is evident. The ascending aorta diameter at the level o f the main pulmonary artery is 4.2 cm. The main pulmonary artery diameter at the bifurcation is 3.0 cm. Coronary artery calcification is noted. Limited CT sections are obtained through the upper abdomen. Abdomen is essentially unremarkable. IMPRESSION: 1. CT for bronchoscopy guidance. 2. 1.1 cm area of increased density within the right hilar region
--- NOTE | 2023-04-15 13:55 | P.PCN ---
Date of Procedure: 04/15/23 Operative Findings: Preoperative Diagnosis: Right upper lobe nodule, 1.9 cm Postoperative Diagnosis: Right upper lobe nodule, 1.9 cm Procedure(s) Performed: Flexible bronchoscopy Robotic-assisted bronchoscopy and addition to radial ultrasound evaluation of the right upper lobe pulmonary nodule Robotic-assisted test monitor needle aspirate, transbronchial biopsies, transbronchial brushing of the Right upper lobe pulmonary nodule in addition to a bronchioloalveolar lavage Endobronchial ultrasound Anesthesia: CATHYA Surgeon: Delta Prajapati Estimated Blood Loss (ml): 0 Pathology: other Condition: stable Disposition: same day Operative Findings: A physical exam was performed. Informed consent was obtained from the patient after explaining all the risks (pneumothorax, life threatening bleeding, infection and adverse effects due to medications), benefits and alternatives to the procedure which the patient appeared to understand and so stated. The patient was connected to the monitoring devices. General anesthesia was induced and the patient was intubated by anesthesia. A final timeout was performed and the procedure confirmed by the attending staff bronchoscopist. The bronchoscope was inserted and the airway examined. The airway examination was within normal limits. There was some limited secretions that were suctioned out without any major difficulties. The flexible bronchoscope was removed and the robotic bronchoscope was inserted. Registration was completed. I next guided the robotic bronchoscope using the navigation system into the Right upper lobe anterior segment segment. Once in proper position, the bronchoscope was frozen. The radial EBUS probe was placed through the bronchoscope and confirmed abnormal u/s images vs normal lung. A needle was placed through the working channel and under fluoroscopic guidance, we sampled the area thought to have the mass twice. We then used a cloud biopsy pattern with ultrasound confirmation for 6 additional passes with the needle. I utilize a 21-gauge and a 23-gauge needle. Rapid on-site pathologic evaluation was done in the samples were adequate. U/S evaluation was then used to reconfirm location. Forceps were next introduced through working channel and extended the appropriate distance and 2 transbronchial biopsies were performed using fluoroscopic guidance. The u/s probe was then reinserted to confirm location. When confirmed this process was repeated for a total of 6 transbronchial biopsies. After reassessment with EBUS, a brush was placed through the extendable working channel for 1 pass with fluoroscopic guidance. U/S evaluation was then used to confirm location. 40ml of saline was then instilled into the area of the lesion. The robotic bronchoscope was removed and the airway inspected with a flexible bronchoscope and 10 ml of effluent from the BAL was collected. The flexible bronchoscope was removed and the EBUS-TBNA bronchoscope was used to intubate the pateint through the ETT. Following that, endobronchial ultrasound was inserted for mediastinal lymph node evaluation. A total evaluation of the mediastinal lymph nodes revealed no significant pathologic mediastinal lymphadenopathy and all of the lymph nodes we re less than 5 mm in size. As such, no mediastinal lymph node sampling was normal. No pathologic lymphadenopathy identified. The patient was then extubated with the EBUS-TBNA bronchoscope and intubated with an Olympus IT bronchoscope without difficutly. The airways were inspected and cleared of secretions and blood. Fluoroscopic check for pneumothorax was negative upon completion of the pr ocedure. There was 0 ml blood loss with the procedure. FINDINGS: 1.The airways appeared normal 2 Successful navigation, ultrasonographic identification, and biopsies of Right upper lobe pulmonary nodule 3.The radial ultrasound view was initially eccentric and later on concentric 4 no evidence of any significant mediastinal lymphadenopathy based on EBUS examination. RECOMMENDATIONS: Await pathology and cytology results The referring physician will be alerted to the results when available. The patient was advised to follow up with the referring physician with the biopsy results Patient will be called with results.
[2023-04-15 14:16] LABS: Glucose,Whole Blood 193 mg/dL (70-110)
--- NOTE | 2023-04-15 14:22 | FL ---
EXAMINATION TYPE: FL bronchoscopy Intraoperative/procedural fluoroscopic services were provided. Tota l fluoroscopy time is 2 minutes 10 seconds with a total of 3 submitted images to PACS. Please see the operative/procedural note for further details. DAP: [id number] mGym2
[2023-04-15 14:42] VITALS: TEMP 97.1
--- NOTE | 2023-04-15 15:22 | XR ---
EXAMINATION TYPE: XR chest 1V DATE OF EXAM: 04/15/2023 COMPARISON: 03/29/2019 HISTORY: 67-year-old female post bronchoscopic biopsy TECHNIQUE: Single frontal view of the chest is obtained. FINDINGS: Low lung volumes with crowded vascular markings. Strandy areas of atelectasis left upper a nd midlung. Heart upper limits of normal in size. No kelly consolidation, pneumothorax, or pleural ef fusion is seen. IMPRESSION: Hypoventilatory changes. Strandy areas of atelectasis. No acute process or appreciable p neumothorax.
[2023-04-15 15:49] VITALS: BP 145/81; PULSE 76; RESP 20
== END 2023-04-15 16:01 | disposition home or self-care (01) ==
LOC: ORWHC2ENDO 10:57
PROVIDERS: ATTEND Internal Medicine Critical Care Medicine
DX: R91.1 Solitary pulmonary nodule (principal); J45.909 Unspecified asthma, uncomplicated; I48.91 Unspecified atrial fibrillation; F32.A Depression, unspecified; E78.5 Hyperlipidemia, unspecified; Z88.8 Allergy status to other drugs, medicaments and biological substances; Z79.899 Other long term (current) drug therapy; Z79.01 Long term (current) use of anticoagulants
CPT/HCPCS: 88108; 88305; 88173; 87070; 87205; 87116; 87102; 87206; 71045; 71250; 31628; 31629; 31623; 31624; 31652; J2250; J0330; J2710; J2001; J3010; J2704; J2371; S2900

== ENCOUNTER → 2023-08-30 | Outpatient (CLI) | payer MEDICARE ==
[2023-08-30 15:51] LABS: African American GFR (CKD) 66 (>60 ml/min/1.73 sqM); Blood Urea Nitrogen 22 mg/dL (7-17); Non-African American GFR(CKD) 57 (>60 ml/min/1.73 sqM)
--- NOTE | 2023-08-30 17:19 | CT ---
EXAMINATION TYPE: CT chest w con CT DLP: 523 mGycm, Automated exposure control for dose reduction was used. DATE OF EXAM: 08/30/2023 4:46 PM COMPARISON: 04/15/2023 CLINICAL INDICATION:Female, 68 years old with history of R91.1 SOLITARY PULMONARY NODULE; PHH, pulmon ilda nodule TECHNIQUE: Multiple axial images were obtained through the chest. Sagittal and coronal reformats were created for review. Contrast used:80 mL of Isovue 300 with IV Contrast (None if empty) Oral contrast used: (None if empty) FINDINGS: LUNGS/ PLEURA: Right upper lobe nodule pulmonary hilum measuring 9 mm previously 11 mm. than prior to 04/15/2023. No focal consolidation, pneumothorax or pleural effusion. No enlarging other pulmonary nod ules. AIRWAY: Patent and unremarkable. HEART: Heart is mildly enlarged for size. Mild coronary artery calcifications. MEDIASTINUM: No gross evidence of adenopathy. VASCULATURE: No aortic aneurysm. MUSCULOSKELETAL: No acute osseous abnormalities SOFT TISSUES/LYMPH NODES: Unremarkable. LOWER NECK: No significant findings. UPPER ABDOMEN: No significant findings. IMPRESSION: 1. Right upper lobe nodule appears fractionally smaller than prior now measuring 9 mm. Correlation p athology if previously biopsied. Consider PET/CT if not already performed. Short-term follow-up surve illance. 2. No evidence for acute thoracic process.
== END | disposition home or self-care (01) ==
LOC: RADCTMAIN 14:55
PROVIDERS: ATTEND Internal Medicine Critical Care Medicine
DX: R91.1 Solitary pulmonary nodule (principal)
CPT/HCPCS: 82565; 84520; 71260; 36415; Q9967

== ENCOUNTER → 2023-12-29 | Outpatient (CLI) | payer MEDICARE ==
[2023-12-29 13:41] LABS: African American GFR (CKD) >90 (>60 ml/min/1.73 sqM); Blood Urea Nitrogen 24 mg/dL (7-17); Non-African American GFR(CKD) 88 (>60 ml/min/1.73 sqM)
--- NOTE | 2023-12-29 15:54 | CT ---
EXAMINATION TYPE: CT chest w con CT DLP: 485.60 mGycm, Automated exposure control for dose reduction was used. DATE OF EXAM: 12/29/2023 2:41 PM COMPARISON: CT chest 08/30/2023, 04/15/2023, 12/09/2022, 08/31/2022, 08/18/2022 CLINICAL INDICATION:Female, 68 years old with history of R91.1 Solitary pulmonary nodule; PHH, SOLITA RY PULMONARY NODULE TECHNIQUE: Multiple axial images were obtained through the chest following the administration of 100 cc of Isovue 300. . Coronal and sagittal reformats reviewed. FINDINGS: LUNGS/ PLEURA: Relatively stable right perihilar midlung somewhat spiculated 1.6 cm nodule. Previousl y 1.6 cm when measured with similar technique. No focal consolidation, pneumothorax or pleural effusi on. Linear scarring or atelectasis within the lingula. No new pulmonary nodules. AIRWAY: Patent and unremarkable. HEART: Heart is mildly enlarged for size. Mild coronary artery calcifications. No pericardial effusio n. MEDIASTINUM: No gross evidence of adenopathy. VASCULATURE: No aortic aneurysm. MUSCULOSKELETAL: No acute osseous abnormalities. Mild multilevel degenerative disc disease. SOFT TISSUES/LYMPH NODES: Unremarkable. LOWER NECK: No significant findings. UPPER ABDOMEN: Small hiatal hernia. IMPRESSION: Relatively stable right upper lobe 1.6 cm pulmonary nodule when measured with similar technique. No n ew pulmonary nodules. Consider PET/CT if not already performed. Continued surveillance is recommended . [facility], , 12/29/2023 3:52 PM
== END | disposition home or self-care (01) ==
LOC: RADCTMAIN 12:47
PROVIDERS: ATTEND Internal Medicine Critical Care Medicine
DX: R91.1 Solitary pulmonary nodule (principal)
CPT/HCPCS: 36415; 71260; 82565; 84520

== ENCOUNTER → 2024-06-16 | Outpatient (CLI) | payer MEDICARE ==
--- NOTE | 2024-06-16 13:07 | CT ---
EXAMINATION TYPE: CT chest w con DATE OF EXAM: 06/16/2024 COMPARISON: Chest CT December 29, 2023 and older studies. CLINICAL INDICATION: Female, 69 years old with history of R91.1 SOLITARY PULMONARY NODULE, Solitary P ulmonary Nodule TECHNIQUE: CT scan of the thorax is performed following with IV Contrast, patient injected with 100 mL of Isovue 300. CT DLP: 509 mGycm. Automated Exposure Control for Dose Reduction was Utilized. FINDINGS: LUNGS: Mild to moderate underlying emphysematous change is redemonstrated. Stable anterior right alba hilar 1.6 x 1.3 cm spiculated opacity image 21 from August 2022 study. Stable mild linear scarring in t he left midlung in the left lung base. HEART: Mild cardiomegaly redemonstrated. Moderate coronary artery calcifications present. MEDIASTINUM: There are no greater than 1 cm hilar or mediastinal lymph nodes. No pericardial effusi on is seen. OTHER: Slight scoliotic curvature with multilevel spurring and disc space narrowing in the thoracic s pine is present. IMPRESSION: No significant change from most recent prior CT. No new or enlarging suspicious nodules n oted. [facility], , 06/16/2024 1:05 PM
== END | disposition home or self-care (01) ==
LOC: RADCTMAIN 11:54
PROVIDERS: ATTEND Internal Medicine Critical Care Medicine
DX: R91.1 Solitary pulmonary nodule (principal)
CPT/HCPCS: 71260; Q9967